=== PATIENT | female | born 1995 | race Caucasian/White ===

== ENCOUNTER → 2018-02-11 | Outpatient (CLI) | payer BC ==
[~2018-02-11] MED LIST: IOHEXOL 240 MG/ML 50ML VIAL. ONE; IOHEXOL 240 MG/ML 50ML VIAL. PO ONE; IOHEXOL 300 MG/ML 75 ML VIAL. IV ONE
--- NOTE | 2018-02-11 10:21 | RAD ---
CT of the abdomen and pelvis with contrast, 02/11/2018: HISTORY: Epigastric pain, bloating, left-sided pain, nausea and vomiting Multidetector CT imaging was performed following oral and IV administration of contrast. No hepatic abnormality is detected. The gallbladder is unremarkable. No pancreatic abnormality is seen. The spleen is of normal size. A 3 mm intrarenal calculus is seen on the left. The kidneys are otherwise unremarkable. No abdominal or pelvic adenopathy is seen. The uterus is within normal limits in size. A 2 cm cyst is present in the right ovary. This is presumably a functional cyst. The bowel loops are not dilated. The cecum is low-lying in the right pelvis. A portion of the appendix is visualized and it is unremarkable. No free fluid or free air is evident in the abdomen or pelvis. There is a mild posterior disc bulge at L5-S1. IMPRESSION: 1. Tiny nonobstructing left intrarenal calculus. 2. No acute abdominal or pelvic abnormality is detected. PQRS Compliance Statement: One or more of the following individualized dose reduction techniques were utilized for this examination: 1. Automated exposure control 2. Adjustment of the mA and/or kV according to patient size 3. Use of iterative reconstruction technique Electronically signed by: Vaughn Kiser MD (02/11/2018 10:18 AM) [facility]
== END | disposition home or self-care (01) ==
LOC: CT 08:23
PROVIDERS: ATTEND Nurse Practitioner Family
DX: N28.1 Cyst of kidney, acquired (principal)
CPT/HCPCS: 74177; Q9966; Q9967